=== PATIENT | male | born 1960 | race Caucasian/White ===

== ENCOUNTER 2016-08-07 17:15 | Emergency (ER) | payer MEDICAID ==
[~2016-08-07] VITALS: Ht 180.3 cm; Wt 129.5 kg
[~2016-08-07 17:15] MED LIST: AMLO10TA2 PO; AMLO5TAB2 PO; ASPI-650 PO; ASPI325T4 PO; ATOR40TA78 PO; CELE200C PO; DIAZ10TA PO; LISI-167 PO; LOSA50TA6 PO; OXYC-229 PO; OXYC-302 PO; OXYC20TA42 PO; TAMS0.4C2 PO; TERB250T3 PO; celebrex; oxycontin
[2016-08-07] MEDS ORDERED: ONDANSETRON 2MG/ML, 2ML IVPush ONE (17:30)
[2016-08-07] MEDS ORDERED: SODIUM CHLORIDE 0.9% 1,000ML IVBOLUS ONE (17:30)
[2016-08-07 18:07] LABS: ASPARTATE AMINO TRANSFERASE 30 U/L (15-37); BLOOD UREA NITROGEN 18 mg/dL (7-18)
[2016-08-07 18:16] LABS: IS PT STATUS REG ER OR PRE ER? YES
[2016-08-07 18:26] LABS: PATH.CAST-FLAG NOT PRESENT; SPERM-FLAG NOT PRESENT; SRC-FLAG NOT PRESENT; XTAL-FLAG NOT PRESENT; YLC-FLAG NOT PRESENT
[2016-08-07 19:00] VITALS: BP 151/68
[2016-08-07] MEDS ORDERED: LISI5TAB7 PO (19:02)
[2016-08-07] MEDS ORDERED: KETOROLAC 30 MG/1 ML ONE (19:29)
[2016-08-07] MEDS ORDERED: KETOROLAC 30 MG/1 ML IM ONE (19:30)
== END 2016-08-07 19:56 | disposition home or self-care (01) ==
LOC: ED 19:33
DX: M94.0 Chondrocostal junction syndrome [Tietze] (principal); B34.9 Viral infection, unspecified; I10 Essential (primary) hypertension; J44.9 Chronic obstructive pulmonary disease, unspecified
CPT/HCPCS: 36415; 71010; 80053; 81001; 84484; 85025; 93005; 96372; 99285; J1885

== ENCOUNTER 2017-01-05 04:22 | Emergency (ER) | payer MEDICAID ==
[~2017-01-05] VITALS: Ht 180.3 cm; Wt 127.4 kg
[~2017-01-05 04:22] MED LIST changes: +ASPI325T17 PO; -ASPI325T4 PO; +LISI5TAB7 PO; -OXYC-229 PO; +OXYC-307 PO
[2017-01-05] MEDS ORDERED: KETOROLAC 30 MG/1 ML IM ONE (05:30)
[2017-01-05] MEDS ORDERED: LIDOCAINE 1%-EPI 1:100K, 20ML INFIL ONE (05:30)
[2017-01-05] MEDS ORDERED: ASPIRIN 81 MG TABLET CHEW PO ONE (05:30)
[2017-01-05 05:40] LABS: HEMATOCRIT 44.7 % (39.2-51.8); HEMOGLOBIN 15.2 g/dL (13.7-18.0); WHITE BLOOD COUNT 12.4 x10^3/uL (3.4-10)
[2017-01-05 05:49] LABS: BLOOD UREA NITROGEN 10 mg/dL (7-18)
[2017-01-05] MEDS ORDERED: KETOROLAC 30 MG/1 ML ONE (05:54)
[2017-01-05] MEDS ORDERED: ASPIRIN 81 MG TABLET CHEW ONE (05:55)
[2017-01-05] MEDS ORDERED: LIDOCAINE 1%, 20ML ONE (06:25)
[2017-01-05 07:19] VITALS: BP 120/62
== END 2017-01-05 07:38 | disposition home or self-care (01) ==
LOC: ED 05:23
DX: B02.29 Other postherpetic nervous system involvement (principal); L02.811 Cutaneous abscess of head [any part, except face]; I10 Essential (primary) hypertension; Z79.82 Long term (current) use of aspirin
CPT/HCPCS: 36415; 71010; 80048; 82040; 84484; 85025; 93005; 96372; 99285; J1885

== ENCOUNTER 2017-01-27 23:03 | Emergency (ER) | payer MEDICAID ==
[~2017-01-27] VITALS: Ht 177.8 cm; Wt 129.0 kg
[2017-01-27] MEDS ORDERED: NITROGLYCERIN SINGLE TAB 0.4 MG SL ONE (23:30)
[2017-01-27] MEDS ORDERED: NITROGLYCERIN SINGLE TAB 0.4 MG SL PRN (23:30)
[2017-01-27 23:35] LABS: HEMATOCRIT 43.3 % (39.2-51.8); HEMOGLOBIN 14.6 g/dL (13.7-18.0); WHITE BLOOD COUNT 13.1 x10^3/uL (3.4-10)
[2017-01-27 23:48] LABS: ASPARTATE AMINO TRANSFERASE 19 U/L (15-37); BLOOD UREA NITROGEN 18 mg/dL (7-18)
[2017-01-27 23:52] LABS: IS PT STATUS REG ER OR PRE ER? YES
[2017-01-27] MEDS ORDERED: KETOROLAC 30 MG/1 ML ONE (23:54)
[2017-01-28] MEDS ORDERED: KETOROLAC 60 MG/2 ML IVPush ONE
[2017-01-28] MEDS ORDERED: LISI5TAB7 PO (00:12)
[2017-01-28] MEDS ORDERED: TAMS-11 PO (00:12)
[2017-01-28] MEDS ORDERED: MAALOX/HYOSCYAMINE/LIDOCAINE 45 ML BTL PO ONE (01:00)
[2017-01-28] MEDS ORDERED: MAALOX/HYOSCYAMINE/LIDOCAINE 45 ML BTL ONE (01:08)
== END 2017-01-28 01:55 | disposition home or self-care (01) ==
LOC: ED 23:14
DX: R09.1 Pleurisy (principal); J44.9 Chronic obstructive pulmonary disease, unspecified; I10 Essential (primary) hypertension
CPT/HCPCS: 36415; 71010; 80053; 84484; 85025; 85379; 93005; 96374; 99285; J1885

== ENCOUNTER 2017-07-07 08:36 | Emergency (ER) | payer MEDICAID ==
[~2017-07-07] VITALS: Ht 177.8 cm; Wt 135.5 kg
[~2017-07-07 08:36] MED LIST changes: +TAMS-11 PO
[2017-07-07] MEDS ORDERED: ASPIRIN 81 MG TABLET CHEW ONE (08:58)
[2017-07-07] MEDS ORDERED: MAALOX/HYOSCYAMINE/LIDOCAINE 45 ML BTL PO ONE (09:00)
[2017-07-07] MEDS ORDERED: ASPIRIN 81 MG TABLET CHEW PO ONE (09:00)
[2017-07-07] MEDS ORDERED: MAALOX/HYOSCYAMINE/LIDOCAINE 45 ML BTL ONE (09:02)
[2017-07-07 09:22] LABS: ALANINE AMINOTRANSFERASE 31 U/L (12-78); ALBUMIN 3.4 g/dL (3.4-5.0); ANION GAP 6 mmol/L (5-15); CALCIUM 8.3 mg/dL (8.5-10.1); CHLORIDE 107 mmol/L (98-107); CREATININE 0.93 mg/dL (0.7-1.3)
[2017-07-07 09:25] LABS: BASOPHILS # (AUTO) 0.07 x10^3/uL (0-0.1); BASOPHILS % (AUTO) 1 % (0-1); EOSINOPHILS # (AUTO) 0.43 x10^3/uL (0-0.4); EOSINOPHILS % (AUTO) 4 % (1-7); LYMPHOCYTES # (AUTO) 1.84 x10^3/uL (1-3.4); LYMPHOCYTES % (AUTO) 16 % (22-44); MD NO; MEAN CORPUSCULAR HEMOGLOBIN 30.3 pg (27.5-34.5); MEAN CORPUSCULAR VOLUME 91.9 fL (81-97); MEAN PLATELET VOLUME 8.4 fL (7.4-10.4); MONOCYTES # (AUTO) 0.86 x10^3/uL (0.2-0.8); MONOCYTES % (AUTO) 7 % (2-9); NEUTROPHILS # (AUTO) 8.48 x10^3/uL (1.8-6.8); NEUTROPHILS % (AUTO) 73 % (42-75); PLATELET COUNT 263 x10^3/uL (130-400); RED CELL DISTRIBUTION WIDTH 13.7 % (9.4-14.8)
[2017-07-07 09:27] LABS: ALKALINE PHOSPHATASE 91 U/L (45-117); BILIRUBIN,TOTAL 0.5 mg/dL (0.2-1.0); TOTAL PROTEIN 7.4 g/dL (6.4-8.2); TROPONIN I < 0.015 ng/mL (0.000-0.045)
[2017-07-07 09:35] VITALS: BP 141/74
== END 2017-07-07 09:45 | disposition home or self-care (01) ==
LOC: ED 09:38
DX: J41.1 Mucopurulent chronic bronchitis (principal); I10 Essential (primary) hypertension; R07.89 Other chest pain; Z87.891 Personal history of nicotine dependence
CPT/HCPCS: 36415; 71045; 80053; 83690; 84484; 85025; 93005; 99285

== ENCOUNTER 2018-03-16 09:43 | Emergency (ER) | payer MEDICAID ==
[~2018-03-16] VITALS: Ht 177.8 cm; Wt 139.3 kg
[~2018-03-16 09:43] MED LIST changes: +AMLO-150 PO; -AMLO10TA2 PO; +AMLO10TA6 PO; -AMLO5TAB2 PO; -LOSA50TA6 PO; +LOSA50TA7 PO
[2018-03-16 11:06] LABS: BASOPHILS # (AUTO) 0.05 x10^3/uL (0-0.1); BASOPHILS % (AUTO) 1 % (0-1); EOSINOPHILS # (AUTO) 0.45 x10^3/uL (0-0.4); EOSINOPHILS % (AUTO) 5 % (1-7); LYMPHOCYTES # (AUTO) 2.17 x10^3/uL (1-3.4); LYMPHOCYTES % (AUTO) 22 % (22-44); MD NO; MEAN CORPUSCULAR HEMOGLOBIN 31.2 pg (27.5-34.5); MEAN CORPUSCULAR HGB CONC 33.7 g/dL (33.2-36.2); MEAN CORPUSCULAR VOLUME 92.7 fL (81-97); MONOCYTES # (AUTO) 0.76 x10^3/uL (0.2-0.8); MONOCYTES % (AUTO) 8 % (2-9); NEUTROPHILS # (AUTO) 6.67 x10^3/uL (1.8-6.8); NEUTROPHILS % (AUTO) 66 % (42-75); PLATELET COUNT 259 x10^3/uL (130-400); RED BLOOD COUNT 4.83 x10^6/uL (4.38-5.82); RED CELL DISTRIBUTION WIDTH 13.5 % (9.4-14.8)
[2018-03-16 11:11] LABS: ALBUMIN 3.5 g/dL (3.4-5.0); ANION GAP 7 mmol/L (5-15); CALCIUM 8.8 mg/dL (8.5-10.1); CHLORIDE 104 mmol/L (98-107)
[2018-03-16 11:27] VITALS: BP 162/90
== END 2018-03-16 11:30 | disposition home or self-care (01) ==
LOC: ED 11:24
DX: J98.01 Acute bronchospasm (principal); R05 Cough; I10 Essential (primary) hypertension; Z87.891 Personal history of nicotine dependence
CPT/HCPCS: 36415; 71046; 80048; 82040; 85025; 93005; 99284

== ENCOUNTER 2018-04-28 12:34 | Emergency (ER) | payer MEDICAID ==
[~2018-04-28] VITALS: Ht 177.8 cm; Wt 138.0 kg
[~2018-04-28 12:34] MED LIST changes: -AMLO10TA6 PO; +AMLO10TA8 PO; +LOSA50TA14 PO; -LOSA50TA7 PO
[2018-04-28] MEDS ORDERED: ATOR-2 PO (13:15)
[2018-04-28] MEDS ORDERED: KETOROLAC 30 MG/1 ML ONE (13:19)
--- NOTE | 2018-04-28 13:28 | NUR ---
LATE ENTRY FOR 1314, DR SAMPSON AT BEDSIDE. PT W/ C/O LEFT SIDE CP STARTED APPROX 3 DAYS AGO, INTERMITTANT, NON RADIATING, REPRODUCEABLE WITH MOVEMENT AND PALPATION. INCREASES WITH INSPIRATION. ASSESSMENT REVIEWED, ORDERS REC'D
--- NOTE | 2018-04-28 13:28 | NUR ---
TEST RESULTS PENDING. PT ON ALL MONITORS, CALL LIGHT W/I REACH
[2018-04-28] MEDS ORDERED: KETOROLAC 30 MG/1 ML IM ONE (13:30)
[2018-04-28 13:36] LABS: BASOPHILS # (AUTO) 0.04 x10^3/uL (0-0.1); BASOPHILS % (AUTO) 0 % (0-1); EOSINOPHILS # (AUTO) 0.33 x10^3/uL (0-0.4); EOSINOPHILS % (AUTO) 3 % (1-7); LYMPHOCYTES % (AUTO) 28 % (22-44); MD NO; MEAN CORPUSCULAR HEMOGLOBIN 30.7 pg (27.5-34.5); MEAN CORPUSCULAR HGB CONC 33.1 g/dL (33.2-36.2); MEAN CORPUSCULAR VOLUME 92.7 fL (81-97); MEAN PLATELET VOLUME 7.8 fL (7.4-10.4); MONOCYTES # (AUTO) 0.75 x10^3/uL (0.2-0.8); MONOCYTES % (AUTO) 7 % (2-9); NEUTROPHILS % (AUTO) 63 % (42-75); PLATELET COUNT 310 x10^3/uL (130-400); RED BLOOD COUNT 4.86 x10^6/uL (4.38-5.82); RED CELL DISTRIBUTION WIDTH 13.6 % (9.4-14.8)
[2018-04-28 13:49] LABS: ALBUMIN 3.4 g/dL (3.4-5.0); ANION GAP 6 mmol/L (5-15); CALCIUM 8.8 mg/dL (8.5-10.1); CHLORIDE 110 mmol/L (98-107); CREATININE 0.74 mg/dL (0.7-1.3)
[2018-04-28 13:52] LABS: TROPONIN I < 0.015 ng/mL (0.000-0.045)
[2018-04-28 14:11] VITALS: BP 162/74
--- NOTE | 2018-04-28 14:13 | NUR ---
Patient/Caregiver given discharge instructions and they have confirmed that they understand the instructions. Patient ambulatory with steady gait.
== END 2018-04-28 14:14 | disposition home or self-care (01) ==
LOC: ED 13:28
DX: R07.89 Other chest pain (principal); I10 Essential (primary) hypertension; J44.9 Chronic obstructive pulmonary disease, unspecified
CPT/HCPCS: 36415; 71046; 80048; 82040; 84484; 85025; 93005; 96372; 99284; J1885

== ENCOUNTER → 2019-11-04 | Outpatient (CLI) | payer MEDICAID ==
[~2019-11-04] MED LIST changes: +ATOR-2 PO; +OMNIPAQUE 350 MG/ML, 75ML BOTTLE ONE
== END | disposition home or self-care (01) ==
LOC: CFH 10:27
PROVIDERS: ATTEND Surgery
DX: R91.8 Other nonspecific abnormal finding of lung field (principal); J44.9 Chronic obstructive pulmonary disease, unspecified; Z87.891 Personal history of nicotine dependence
CPT/HCPCS: 71260; Q9967

== ENCOUNTER 2020-06-24 07:57 | Emergency (ER) | payer MEDICAID ==
[~2020-06-24] VITALS: Ht 180.3 cm; Wt 103.7 kg
[~2020-06-24 07:57] MED LIST changes: +AMLO-211 PO; -AMLO10TA8 PO; +ASPI-1026 PO; -ASPI-650 PO; +ASPI325T20 PO; -OMNIPAQUE 350 MG/ML, 75ML BOTTLE ONE; -OXYC-302 PO; -OXYC-307 PO; +OXYC-380 PO; +OXYC1TAB14 PO
--- NOTE | 2020-06-24 08:00 | NUR ---
TRIAGE DONE BY THIS RN
[2020-06-24] MEDS ORDERED: ACETAMINOPHEN 500 MG TABLET PO ONE (08:30)
[2020-06-24] MEDS ORDERED: ACETAMINOPHEN 500 MG TABLET ONE (08:43)
[2020-06-24 08:56] LABS: RAPID INFLUENZA A Negative (Negative); RAPID INFLUENZA B Negative (Negative)
[2020-06-24 09:38] VITALS: BP 134/63
--- NOTE | 2020-06-24 09:39 | NUR ---
Patient/Caregiver given discharge instructions and they have confirmed that they understand the instructions. Patient ambulatory with steady gait.
== END 2020-06-24 09:40 | disposition home or self-care (01) ==
LOC: ED 08:05
DX: B34.9 Viral infection, unspecified (principal); Z20.822 Contact with and (suspected) exposure to COVID-19; I10 Essential (primary) hypertension; J44.9 Chronic obstructive pulmonary disease, unspecified; E66.9 Obesity, unspecified; Z68.31 Body mass index [BMI] 31.0-31.9, adult
CPT/HCPCS: 71045; 87400; 99284; U0003